=== PATIENT | female | born 1985 | race Caucasian/White ===

== ENCOUNTER → 2017-08-03 | Outpatient (CLI) | payer MEDICAID ==
[~2017-08-03] MED LIST: ALBUTEROL PO; CYCL-259 PO; DIPH25TA28 PO; MULTIVITAMIN PO; SERT50TA5 PO
== END | disposition home or self-care (01) ==
LOC: RAD 12:34
PROVIDERS: ATTEND Neurological Surgery
DX: M41.86 Other forms of scoliosis, lumbar region (principal); M47.897 Other spondylosis, lumbosacral region; M48.07 Spinal stenosis, lumbosacral region; M51.27 Other intervertebral disc displacement, lumbosacral region; M47.892 Other spondylosis, cervical region; M79.604 Pain in right leg; M79.605 Pain in left leg
CPT/HCPCS: 72082; 72148